=== PATIENT | male | born 1990 | race Caucasian/White ===

== ENCOUNTER 2016-12-26 11:54 | Emergency (ER) | payer SELFPAY ==
[~2016-12-26 11:54] MED LIST: ABILIFY5 M1 PO; FLEXERIL10 MG PO; MOTRIN600 MG PO; NORCO 5-325 TA1 EACH PO; NORCO 5/325 TAB1 TAB PO; NORCO 5/3251 TA1 PO; NORCO 5/3251 TAB PO; NORCO 7.5/325 T1 TAB PO; ROBAXIN500 MG PO; TRAMADOL HCL50 M2 PO
[2016-12-26] MEDS ORDERED: DICLOFENAC SODI75 M2 PO (13:47)
== END 2016-12-26 13:52 ==
LOC: EDMED 11:54
DX: S80.02XA Contusion of left knee, initial encounter (principal); F17.210 Nicotine dependence, cigarettes, uncomplicated; W18.30XA Fall on same level, unspecified, initial encounter; Y92.410 Unspecified street and highway as the place of occurrence of the external cause